=== PATIENT | female | born 1955 | race Caucasian/White ===

== ENCOUNTER → 2017-04-19 | Outpatient (CLI) | payer OTHER ==
[~2017-04-19] MED LIST: BACL20TA PO; CHOL500014 PO; DALF10TA PO; FING0.5C3 PO; GABA800T2 PO; LISI-170 PO; LOVA40TA2 PO; METO25TA35 PO; OXYB10TA6 PO
== END | disposition home or self-care (01) ==
LOC: CFH 16:10
PROVIDERS: ATTEND Specialist
DX: G93.9 Disorder of brain, unspecified (principal); R90.82 White matter disease, unspecified
CPT/HCPCS: 70551

== ENCOUNTER → 2017-08-27 | Outpatient (CLI) | payer OTHER ==
[~2017-08-27] MED LIST changes: -CHOL500014 PO; +CHOL500045 PO
== END | disposition home or self-care (01) ==
LOC: CFH 14:26
DX: J98.11 Atelectasis (principal); M41.85 Other forms of scoliosis, thoracolumbar region; K44.9 Diaphragmatic hernia without obstruction or gangrene; Z90.49 Acquired absence of other specified parts of digestive tract
CPT/HCPCS: 71250

== ENCOUNTER → 2019-03-27 | Outpatient (CLI) | payer MEDICARE, OTHER ==
[~2019-03-27] MED LIST changes: -GABA800T2 PO; +GABA800T5 PO
== END | disposition home or self-care (01) ==
LOC: CFH 13:04
PROVIDERS: ATTEND Specialist
DX: Z12.31 Encounter for screening mammogram for malignant neoplasm of breast (principal); M81.0 Age-related osteoporosis without current pathological fracture; R90.82 White matter disease, unspecified; G35 Multiple sclerosis
CPT/HCPCS: 70551; 72141; 77080; 77067

== ENCOUNTER 2019-08-18 08:54 | Outpatient (CLI) | payer MEDICARE | END 2019-08-18 23:59 | disposition home or self-care (01) | LOC: CFH 08:54 | PROVIDERS: ATTEND Specialist | DX: R60.0 Localized edema (principal) | CPT/HCPCS: 93970 ==

== ENCOUNTER → 2021-01-25 | Outpatient (CLI) | payer MEDICARE | END | disposition home or self-care (01) | LOC: RAD 12:36 | PROVIDERS: ATTEND Specialist | DX: D18.09 Hemangioma of other sites (principal); M48.56XA Collapsed vertebra, not elsewhere classified, lumbar region, initial encounter for fracture; M50.30 Other cervical disc degeneration, unspecified cervical region; M47.812 Spondylosis without myelopathy or radiculopathy, cervical region; G35 Multiple sclerosis; G31.9 Degenerative disease of nervous system, unspecified; M48.02 Spinal stenosis, cervical region | CPT/HCPCS: 70551; 72141; 72146 ==

== ENCOUNTER → 2021-03-31 | Outpatient (CLI) | payer MEDICARE | END | disposition home or self-care (01) | LOC: CFH 10:35 | PROVIDERS: ATTEND Family Medicine | DX: Z12.31 Encounter for screening mammogram for malignant neoplasm of breast (principal); R63.4 Abnormal weight loss; J43.9 Emphysema, unspecified | CPT/HCPCS: 71250; 74176; 77067 ==

== ENCOUNTER → 2021-05-30 | Outpatient (CLI) | payer MEDICARE | END | disposition home or self-care (01) | LOC: CFH 09:37 | PROVIDERS: ATTEND Family Medicine | DX: M81.0 Age-related osteoporosis without current pathological fracture (principal) | CPT/HCPCS: 77080 ==